=== PATIENT | female | born 1940 | race Caucasian/White ===

== ENCOUNTER → 2016-10-28 | Outpatient (CLI) | payer MEDICARE, BC ==
[~2016-10-28] MED LIST: BUPROPION XL300 MG PO; CAL-600 W/D 6001 TAB PO; CALCIFEROL50000 IU PO; CALCIUM + D 6001 TAB PO; CECLOR 250MG250 MG PO; COLACE 100100 MG/CAP PO; CYMBALTA 30MG30 MG PO; D3-55000 IU PO; FLAGYL500 MG PO; FOLIC ACID 40400 MCG PO; GLUCOSAMINE PO; HCTZ 25MG25 MG PO; ICAPS AREDS1 TAB PO; ICAPS LUTEIN &1 TAB PO; INVANZ INJ1 G/VIAL IV; IRON325 MG PO; MACRODANTIN25 MG PO; MACRODANTIN50 MG/CA1 PO; MYRBETR50MG PO; NEURONTIN600 MG/TAB PO; NORCO 325 MG-7.1 TAB PO; PRILOSEC 20MG20 MG PO; PROBIOTIC-MAJOR PO; TYLENOL 325MG325 MG PO; TYLENOL 500MG500 MG PO; ULTRAM 50MG TAB50 MG PO; UTI CRANBERRY480 MG PO; VALTREX 50500 MG/TAB PO; VITAMIN C500 MG PO; ZANTAC 150150 MG PO
== END ==
LOC: MC.RAD 13:40
DX: Z12.31 Encounter for screening mammogram for malignant neoplasm of breast (principal)

== ENCOUNTER → 2018-01-22 | Outpatient (CLI) | payer MEDICARE, BC | LOC: COL.RAD 13:04 | DX: N39.0 Urinary tract infection, site not specified (principal); R93.421 Abnormal radiologic findings on diagnostic imaging of right kidney ==

== ENCOUNTER → 2018-02-14 | Outpatient (CLI) | payer MEDICARE, BC | LOC: COL.LAB 11:17 | DX: Z96.641 Presence of right artificial hip joint (principal) ==

== ENCOUNTER 2018-04-06 09:47 | Inpatient (IN) | payer MEDICARE, BC ==
[~2018-04-06] VITALS: Ht 162.6 cm; Wt 100.8 kg
[~2018-04-06 09:47] MED LIST changes: +ASPI325T6 PO; +ROXICODONE 55 MG/TAB PO
[2018-05-30] VITALS (14 sets, daily range): BP systolic 108–129; BP diastolic 47–79; PULSE 72–93; TEMP 97.5–98
--- NOTE | 2018-05-30 07:34 | NUR ---
arrived on unit at 0650, prepped for surgery without incident, instructed on going to and returning from surgery, verbalizes understanding
--- NOTE | 2018-05-30 11:10 | NUR ---
returned to room from PACU per bed, awake and alert, IV infusing and placed on pump at 125ml/hr, O2 on at 2L/NC and O2 sats 98%, Alo hose on left leg but patient refused it on right this am before surgery, aquacel to left hip CD&I and ice in place, c/o pain and requesting pain pills
--- NOTE | 2018-05-30 11:30 | NUR ---
resting quietly, has full sensation and able to move lower extremities, requesting pain med and medicated with roxicodone 10mg, full assessment completed, see interventions for further info, at bedside
--- NOTE | 2018-05-30 12:00 | NUR ---
watching TV, visiting with
--- NOTE | 2018-05-30 12:30 | NUR ---
appears to be sleeping, in bed with eyes closed, resp quiet and easy, relax facial expression
--- NOTE | 2018-05-30 13:00 | NUR ---
appears to be sleeping,
--- NOTE | 2018-05-30 14:00 | NUR ---
awakens easily, denies needs, taking water and diet pepsi and tolerates well
--- NOTE | 2018-05-30 14:20 | NUR ---
attempted to give macrobid and patient states it causes uncontrollable diarrhear, notified Sylvia VALDEZ, Dr Bettencourt's nurse, will follow up with Dr Bettencourt
--- NOTE | 2018-05-30 14:57 | NUR ---
SW Met with patient to discuss discharge planning. Patient lives in [facility] with her Jack. Her PCP is Dr Albright and she obtains her medications from [facility]. Patient would like to go to [facility] and [facility] for skilled care and signed a choice form. SW made referral. No other needs at this time.
--- NOTE | 2018-05-30 15:00 | NUR ---
provided pudding her request, then ready to get up to bathroom, physical therapist notified and will assist to bathroom, requesting pain medicine, will medicate if time appropriate
--- NOTE | 2018-05-30 15:30 | NUR ---
up in recliner with assistance of therapy, was unable to void, medicated with roxicodone 10mg, had pudding and tolerated well, offered regular food but will wait for now
--- NOTE | 2018-05-30 16:30 | NUR ---
assisted up to bathroom and voided small amount, then ambulated back to chair and will order supper
--- NOTE | 2018-05-30 17:52 | NUR ---
remains up in chair and eating supper, tolerates well
--- NOTE | 2018-05-30 18:37 | NUR ---
bedside shift report given to COURTNEY Kline
--- NOTE | 2018-05-30 19:20 | NUR ---
Assessment completed. Patient is A&O x 4. VSS, on room air. Reports pain has been controlled with current oral medication. Aquacell dressing to left hip is CDI with a fresh ice pack applied to hip, an area of redness/bruising around the dressing noted. Pedal pulses intact. Has been working on ankle pumps. LLE papa hose/BLE scds on while in bed. Voiding with some issues of incontinence, patient states this is normal for her and has a depends on. Tolerating diet with no c/o nausea. INT to left wrist with intermittent antibiotic. Patient ambulated in the hallway approximately 150 feet with standby assist and walker, gait steady. Denies any concerns or needs at this time, call light is within reach.
--- NOTE | 2018-05-30 21:29 | NUR ---
Paged motion graphics artist MACO Soria with question regarding patient's anticoagulation.
--- NOTE | 2018-05-30 21:40 | NUR ---
call worker person MACO Soria returned paged and new orders for Eliquis to begin tomorrow morning for anticoagulation and discontinued the Aspirin. Patient made aware of changes.
[2018-05-31 03:55] VITALS: BP 129/58; PULSE 92; TEMP 97.6
--- NOTE | 2018-05-31 05:53 | NUR ---
Patient has rested intermittently through the night. VSS. Pain has remained controlled with current oral pain medication. Aquacell dressing to left hip remains CDI with a fresh ice pack applied this morning. Area of reddness/bruising noted around aquacell dressing has slightly increased from last night. Patient has been up multiple times to the bathroom with standby assist with staff with walker. Patient has been incontinent of urine twice through the shift, assisted with new depends. Denies any concerns or needs, call light is within reach.
[2018-05-31 05:59] LABS: HEMATOCRIT 35.7 % (37.0-47.0); HEMOGLOBIN 11.9 g/dl (12.5-16.0)
[2018-05-31 07:26] VITALS: BP 101/70; PULSE 89; TEMP 98.4
--- NOTE | 2018-05-31 09:00 | NUR ---
Patient alert and oriented, answers questions appropriately. See assessment. LLE with incision dressing CDI. Redness noted around dressing. Neuros intact to LLE, pulses palpable. FWB with FWW. C/o occasional pain to LLE. No other c/o at this time.
[2018-05-31 11:37] VITALS: BP 121/45; PULSE 95; TEMP 99.3
--- NOTE | 2018-05-31 11:37 | NUR ---
[facility] accepts patient pending bed on discharge. [facility] accepts patient.
[2018-05-31 16:30] VITALS: BP 120/47; PULSE 94; TEMP 97.9
[2018-05-31 19:55] VITALS: BP 121/59; PULSE 91; TEMP 98.3
--- NOTE | 2018-05-31 20:00 | NUR ---
Patient resting in bedside chair watching television at this time. Patient is alert and oriented, answers questions appropriately. Patient reports that she caught her IV on something and it is bleeding. Upon inspection, cannula has been pulled almost completely out. Removed cannula intact, hemostasis achieved. Patient up with x1 assist to bathroom where she is continent of bowel and bladder. Patient denies pain or further needs at this time, call light within reach.
[2018-05-31 23:47] VITALS: BP 130/47; PULSE 88; TEMP 98.2
[2018-06-01 04:05] VITALS: BP 139/67; PULSE 93; TEMP 98.5
--- NOTE | 2018-06-01 06:08 | NUR ---
Patient has rested well overnight. Administered PRN pain medication once per request for hip/back pain. Aquacel to left hip remains CDI. Patient bandar further needs at this time, call light within reach.
[2018-06-01 06:43] LABS: HEMOGLOBIN 10.4 g/dl (12.5-16.0)
[2018-06-01 06:49] LABS: HEMATOCRIT 31.3 % (37.0-47.0)
[2018-06-01 07:49] VITALS: BP 140/54; PULSE 80; TEMP 98.6
--- NOTE | 2018-06-01 09:39 | NUR ---
[facility] will have a room for patient tomorrow. SW informed patient of this.
--- NOTE | 2018-06-01 10:44 | NUR ---
Patient alert and oriented, answers questions appropriately. See assessment. LLE incision with Aquacel in place, shadow drainage noted. Redness noted around Aquacel, area warm to touch. Neuros intact to LLE, pulses palpable. No c/o LLE numbness or tingling. C/o pain 4/10 to LLE. FWB with FWW. No other c/o at this time.
[2018-06-01 11:34] VITALS: BP 138/55; PULSE 81; TEMP 98.5
--- NOTE | 2018-06-01 12:54 | NUR ---
Initial visit; Patient thanked Accounting Machine Servicer for offering spirtual care; prayer and offering God's blessings.
[2018-06-01 16:24] VITALS: BP 136/45; PULSE 95; TEMP 98.5
--- NOTE | 2018-06-01 20:30 | NUR ---
Patient resting in bed watching television at this time. Patient is alert and oriented, answers questions appropriately. Aquacel to left hip is CDI, blisters as noted on assessment around perimeter of dressing. Patient denies needs at this time, but states she would like a PRN pain med when she goes to bed, states she will call for it when she is ready. Call light within reach.
[2018-06-01 20:31] VITALS: BP 114/50; PULSE 87; TEMP 98.3
[2018-06-01 23:49] VITALS: BP 115/47; PULSE 87; TEMP 98.5
[2018-06-02 03:55] VITALS: BP 127/52; PULSE 82; TEMP 97.9
--- NOTE | 2018-06-02 05:17 | NUR ---
Patient has rested intermittently during the night. Up with walker and SBA to bathroom during the night and patient reports that she moved her operative leg too quickly, and her leg was very painful afterward, requested PRN pain medication, administered per order. Patient localized pain just superior to knee, physical examination was unremarkable. Patient denied further needs, call light within reach.
[2018-06-02 05:50] LABS: HEMOGLOBIN 10.7 g/dl (12.5-16.0)
[2018-06-02 05:52] LABS: HEMATOCRIT 32.2 % (37.0-47.0)
--- NOTE | 2018-06-02 08:00 | NUR ---
Assessment completed. Pt standby assist to restroom. Pt used walker. Steady gait. Left hip edema/red. Dry drainage on aquacell dressing on left hip. Pt given pain medication for left hip pain with movement. Pt states she ordered breakfast this morning. Pt now sitting in chair, legs up. Call light in reach.
[2018-06-02 09:12] VITALS: BP 118/39; PULSE 97; TEMP 98.4
--- NOTE | 2018-06-02 09:27 | NUR ---
NCM received a phone call from Penny garcia [facility]. ([phone]). They have a room available at [facility] and want to know transfer time. Discharge orders have not been written. Patient informed that a room is available at [facility] and patient is in agreeance that she wants to go there. IM form signed. Copy given to patient and copy placed on chart.
[2018-06-02] MEDS ORDERED: ROXICODONE 55 MG/TAB PO (09:56)
[2018-06-02] MEDS ORDERED: ELIQUIS 2.5 PO (09:56)
--- NOTE | 2018-06-02 11:03 | NUR ---
Discharge orders faxed to [facility].
--- NOTE | 2018-06-02 11:30 | NUR ---
Left hip dressing changed. bradley intact, no drainage. aquacell placed over incision. pt tolerated well.
--- NOTE | 2018-06-02 12:00 | NUR ---
DISCHARGE PAPERWORK SIGNED BY PT. PT VERBALIZES UNDERSTANDING OF DISCHARGE ORDERS. WILL CALL ANGUS VALDEZ TO GIVE REPORT.
--- NOTE | 2018-06-02 12:08 | NUR ---
phone report given to levar VALDEZ, Nohemy.
--- NOTE | 2018-06-02 12:30 | NUR ---
[facility] IS HERE TO BETTING AGENCY COUNTER CLERK PATIENT. CANDY COUNTER CLERK ASSISTED PT TO BATHROOM. PT USED WALKER, STEADY GAIT. PT STATES PAIN IMPROVED 2/10 AFTER PAIN MEDICATION GIVEN. PT LEFT ROOM VIA WHEELCHAIR WITH [employer] EMPL[employer]YEES, PAPER WORK GIVEN TO THEM.
== END 2018-06-02 12:30 | DRG 470 ==
LOC: SURG 05-30 06:37 → JCC 05-30 09:45 → SURG 06-02 12:30
PROVIDERS: Physician Assistant; ADMIT Orthopaedic Surgery
PROC: 0SRB0JA Replacement of Left Hip Joint with Synthetic Substitute, Uncemented, Open Approach (ICD-10-PCS; principal; 2018-05-30 09:45)
DX: M16.12 Unilateral primary osteoarthritis, left hip (principal); I10 Essential (primary) hypertension; G47.33 Obstructive sleep apnea (adult) (pediatric); K21.9 Gastro-esophageal reflux disease without esophagitis; F32.9 Major depressive disorder, single episode, unspecified; F41.9 Anxiety disorder, unspecified; Z88.6 Allergy status to analgesic agent; Z88.2 Allergy status to sulfonamides; Z88.8 Allergy status to other drugs, medicaments and biological substances; Z96.653 Presence of artificial knee joint, bilateral
CPT/HCPCS: C1713; C1776; J0690; J0694; J1100; J2250; J2704; J2795; J3010; J7120

== ENCOUNTER → 2018-05-23 | Outpatient (CLI) | payer MEDICARE, BC | LOC: COL.LAB 10:17 | DX: Z01.812 Encounter for preprocedural laboratory examination (principal) ==

== ENCOUNTER → 2018-12-17 | Outpatient (CLI) | payer MEDICARE, BC ==
[~2018-12-17] MED LIST changes: +ELIQUIS 2.5 PO
== END ==
LOC: MC.RAD 10:30
DX: Z12.31 Encounter for screening mammogram for malignant neoplasm of breast (principal)